=== PATIENT | female | born 1975 | race Caucasian/White ===

== ENCOUNTER 2025-04-29 06:21 | Day surgery (SDC) | payer OTHER, SELFPAY | END 2025-04-29 09:43 | disposition home or self-care (01) | LOC: GI 06:21 | PROVIDERS: ATTENDING PHYSICIAN Internal Medicine Gastroenterology | DX: Z12.11 Encounter for screening for malignant neoplasm of colon (principal); K51.00 Ulcerative (chronic) pancolitis without complications; K63.5 Polyp of colon; K57.30 Diverticulosis of large intestine without perforation or abscess without bleeding; K64.8 Other hemorrhoids | CPT/HCPCS: 45380; 88305 ==

== ENCOUNTER → 2025-07-19 14:16 | Outpatient (REF) | payer OTHER, SELFPAY | LOC: HWWDC 14:16 | PROVIDERS: ATTENDING PHYSICIAN Nurse Practitioner Family; FAMILY PHYSICIAN Internal Medicine | DX: Z12.31 Encounter for screening mammogram for malignant neoplasm of breast (principal) | CPT/HCPCS: 77063; 77067 ==